=== PATIENT | female | born 1945 | race Caucasian/White ===

== ENCOUNTER 2016-07-07 15:00 | Emergency (ER) | payer OTHER ==
[~2016-07-07] VITALS: Ht 160 cm; Wt 117.9 kg
[~2016-07-07 15:00] MED LIST: BACTRIM DS 8001 TA1 PO; CALCIUM 500 + D1 TA1 PO; DAYPRO600 M1 PO; DETROL LA2 MG PO; DITROPAN XL10 MG PO; K-Dur 20MEQ20 MEQ PO; LASIX20 MG PO; LISINOPRIL/HCTZ1 TA4 PO; MAXEPA1000 MG PO; MOTRIN800 MG PO; MULTIPLE VITAMI1 CAP PO; TESSALON PERLE200 MG PO; TRAMADOL50 MG PO; VICODIN 500 MG-1 TAB PO; ZITHROMAX Z PA250 MG PO
[2016-07-07 15:20] VITALS: BP 127/56
[2016-07-07] MEDS ORDERED: PREDNISONE10 MG PO (15:32)
== END 2016-07-07 17:13 | disposition home or self-care (01) ==
LOC: ED 15:00
DX: M79.671 Pain in right foot (principal); R03.0 Elevated blood-pressure reading, without diagnosis of hypertension; Z88.1 Allergy status to other antibiotic agents; Z90.49 Acquired absence of other specified parts of digestive tract

== ENCOUNTER 2017-01-20 03:58 | Inpatient (IN) | payer OTHER ==
[2017-01-20] VITALS (11 sets, daily range): BP systolic 88–157; BP diastolic 31–88
[~2017-01-20] VITALS: Ht 160 cm; Wt 116.7 kg
--- NOTE | ~2017-01-20 | CON ---
[place], [place] REPORT OF CONSULTATION [facility]TRAN [id number] UNIT #: [id number] ROOM: [facility]- DOCTOR: DORON GAXIOLA MD BIRTHDATE: [birth year] DOS: 01/20/2017 HISTORY OF PRESENT ILLNESS: A 71-year-old patient who presented with chief complaint of nearly passing out and has been admitted by assistance of the family to the hospital and apparently she has had a bloody bowel movement and through the Emergency Room, a panel of blood work has been done. Ionized calcium was normal at 4.8. CT scan of the abdomen and pelvis was done. No acute intrathoracic process identified. Cholecystectomy changes are seen. Mild thickening of the descending colon with adjacent fat stranding suggesting underlying colitis, infectious or inflammation was noticed. Serum ammonia level 15, hemoglobin A1c 6.4, INR 1.0. CBC with differential; white blood cells 32, elevated associated with colitis, H and H of 11 and 36 associated with blood loss was noticed. Comprehensive metabolic panel; BUN and creatinine 37 and 1.4, GFR 41 and compromised renal status, potassium 4. Liver function test normal. C-reactive protein as expected 2.3, elevated. Ketones negative. CT scan of the head has been done, no acute intracranial process. Lactic acid followup still shows elevation. Fecal occult is positive. PAST MEDICAL HISTORY: Associated with hypertension and degenerative joint disease. ALLERGIES: No known medication. SOCIAL HISTORY: Nonsmoker, nonalcohol consumer. FAMILY HISTORY: Noncontributory. PAST SURGICAL HISTORY: Left total knee, right total hip. REVIEW OF SYSTEMS: HEENT: Denies double vision, blurred vision. RESPIRATORY: Denies acute shortness of breath. CARDIOVASCULAR: Denies acute chest pain. DIGESTIVE SYSTEM: Bloody BM. MUSCULOSKELETAL: History of degenerative joint disease. PHYSICAL EXAMINATION: VITAL SIGNS: Stable. Alert and oriented patient, obese. HEENT: Head normocephalic, nontraumatic. Mouth and buccal mucosa benign. NECK: Supple, no thyromegaly, no cervical lymphadenopathy. CHEST: Symmetric anatomy, equal expansion. No wheeze, no rhonchi. HEART: Normal sinus rhythm, no gallop, no murmur. ABDOMEN: Obese, large, soft. No hepato-organomegaly. Bowel sounds present. No pulsatile mass. EXTREMITIES: No cyanosis, no pedal edema. NEUROLOGIC: Alert, oriented to time, place, person. IMPRESSION: Acute gastrointestinal bleed and etiology to be determined, ruling out ischemic colitis. Other adjunctive diagnoses to be ruled out were contributors to gastrointestinal bleed/transit upper gastrointestinal bleeder [place], [place] REPORT OF CONSULTATION NAME: RULA BELTRAN UNIT #: [id number] ROOM: [facility] DOCTOR: DORON GAXIOLA MD BIRTHDATE: [birth year] versus diverticular versus peptic ulcer disease. Other adjunctive diagnoses, hypertension and degenerative joint disease. PLAN AND DISCUSSION: We are considering colonoscopic assessment today. DORON GAXIOLA MD CM:CONSTR:REPORT OF CONSULTATION 1247 01/21/17 0120 interface
--- NOTE | ~2017-01-20 | O ---
[place], [place] OPERATIVE NOTE NAME: RULA BELTRAN UNIT #: [id number] ROOM: [facility] DOCTOR: DORON GAXIOLA MD BIRTHDATE: [birth year] DOS: 01/20/2017 SUBJECTIVE: The patient is a 71-year-old who presented with chief complaint of lower GI bleed, confirmed now to be ischemic colitis on endoscopy and colonoscopy. PROCEDURE: Today's procedure part of investigation is colonoscopy plus biopsy. PREMEDICATION: Versed and Diprivan. SCOPE: Olympus forward-viewing colonoscope 10L video. REPORT: After putting the patient in the left lateral position and after application of lubricant to the scope, the scope was introduced. Thereafter, under direct visualization, I advanced through the length of colon without difficulty. Evidence of ischemic colitis 10 cm from inside the rectum and above to about the transverse colon at the proximal transverse colon was noticed. Degree and intensity is worse at sigmoid colon, descending colon and splenic flexure. Mucosa is very necrotic, blackened and edematous and purplish at the base. Multiple biopsies obtained. Diverticulosis of the descending colon identified. Air was suctioned out. The patient was extubated, tolerated procedure well. PLAN AND DISCUSSION: 1. We are going to organize a CTA of the abdomen, ruling out mesenteric occlusion. 2. We are going to organize heavy IV hydration, as well as antibiotic therapy, organizing metronidazole 500 mg q.8 hours and we are going to organize Invanz 1 gram every day, if not available Invanz then ciprofloxacin 400 mg IV b.i.d. Awaiting CTA of the abdomen results and keeping the patient n.p.o. meanwhile until the data is available incase surgery will become eminent. Thank you very much indeed. Sincerely yours, [place], [place] OPERATIVE NOTE NAME: RULA BELTRAN UNIT #: [id number] ROOM: [facility] DOCTOR: DORON GAXIOLA MD BIRTHDATE: [birth year] DORON GAXIOLA MD CM:OPRECORD:OPERATIVE NOTE 1300 [id number] DORON GAXIOLA MD 01/20/17 1437 interface
[~2017-01-20 03:58] MED LIST changes: +PREDNISONE10 MG PO
[2017-01-20 04:46] LABS: HEMATOCRIT 36.7 % (37.0-47.0); HEMOGLOBIN 11.4 g/dl (12.0-16.0); MEAN CORPUSCULAR HGB CONC 31.1 g/dl (33.0-37.0); MEAN PLATELET VOLUME 10.2 fl (9.6-12.3); NUCLEATED RED BLOOD CELL 0.1 % (0.0-0.0); PLATELET COUNT AUTOMATED 353 10*3/uL (130-400); RED BLOOD COUNT 4.22 10*6/uL (4.10-5.10); RED CELL DISTRI WIDTH 13.7 % (0-14.5); WHITE BLOOD COUNT 32.3 10*3/uL (4.8-10.8)
[2017-01-20 04:52] LABS: BILIRUBIN NEGATIVE (NEGATIVE); BLOOD TRACE-LYSED (NEGATIVE); CLARITY CLOUDY (CLEAR); COLOR YELLOW (YELLOW); GLUCOSE TRACE (NEGATIVE); KETONE NEGATIVE (NEGATIVE); LEUKO ESTERASE 2+ (NEGATIVE); NITRITE NEGATIVE (NEGATIVE); SPECIFIC GRAVITY 1.015 (1.005-1.030)
--- NOTE | 2017-01-20 04:55 | NUR ---
LAB CALLED WITH CRITICAL VALUE OF LACTIC 4.4. NOTIFIED.
[2017-01-20 05:05] LABS: ALBUMIN 3.1 gm/dl (3.1-4.5); ALKALINE PHOSPHATASE 80 U/L (45-117); BUN 37 mg/dl (7-24); CHLORIDE 105 mmol/L (98-107); CREATININE 1.53 mg/dL (0.55-1.02); LIPASE 185 U/L (73-393); POTASSIUM 3.4 mmol/L (3.5-5.1); SGOT/AST 14 IU/L (3-35); SGPT/ALT 17 U/L (12-78); SODIUM 143 mmol/L (136-145); TOTAL PROTEIN 7.3 gm/dL (6.4-8.2)
[2017-01-20 05:05] LABS: BACTERIA 4+; EPITHELIAL CELLS 25-30; WBC 51-100 wbc/hpf (0-5)
[2017-01-20 05:06] LABS: TROPONIN I < 0.015 ng/ml (<0.045)
[2017-01-20 05:08] LABS: TOTAL CELLS COUNTED 100 #CELLS
[2017-01-20 05:09] LABS: BURR CELLS FEW; PLATELET SUFFICIENCY NORMAL (NORMAL)
[2017-01-20] MEDS ORDERED: VESICARE5 MG PO (05:41)
--- NOTE | 2017-01-20 06:05 | NUR ---
A 71, admitted to ICCU, under the services of MART Faust DO with a diagnosis of ACUTE KIDNEY INJURY UTI SEPTIC SHOCK ACUTE COLITIS. Chief complaint is FALL AT HOME. Patient arrived via stretcher from ER. Monitor applied. Initial assessment completed. Vital signs taken and recorded. MART FAUST DO notified of admission to the unit. Orders received. See assessment for past medical history, medications and allergies. Patient and/or family oriented to unit. [facility] visitation policy reviewed. Clothing/patient valuable form completed. WIL PATEL
--- NOTE | 2017-01-20 06:14 | NUR ---
UNABLE TO VERIFY HOME MEDS PATIENT DID NOT KNOW THEM AND DID NOT HAVE A LIST. WILL PASS ON TO CALL [facility] IN AM FOR CURRENT MEDS.
[2017-01-20] MEDS ORDERED: LISINOPRIL-HCT1 EACH PO (06:23)
--- NOTE | 2017-01-20 07:20 | NUR ---
DR LINDSEY NOTIFIED OF INCREASED LA OF 4.8. ORDERS RECIEVED AND CARRIED OUT.
--- NOTE | 2017-01-20 07:32 | NUR ---
PHYSICAL THERAPY [place] received. PAtient medically inappropriate for PT this date. Will check on status tomorrow and intiate as above. Thank you for this referral. Kaylah Saucedo,PT
--- NOTE | 2017-01-20 09:58 | NUR ---
PT HAS BRIGHT BLOODY STOOL. SAMPLE COLLECTED AND SENT. DR LINDSEY NOTIFIED.
--- NOTE | 2017-01-20 12:00 | NUR ---
PT TAKE TO OR FOR COLONOSCOPY.
--- NOTE | 2017-01-20 13:07 | NUR ---
DR GAXIOLA CALLED AND UPDATED ON COLONSOCOPY RESULTS. ORDERS RECIEVED AND CARRIED OUT.
--- NOTE | 2017-01-20 13:15 | NUR ---
RETURNED FROM COLONOSCOPY VIA BED. VITALS STABLE. NO C/O ANY. AWAITING CT OF ABD.
[2017-01-20 13:53] LABS: HEMOGLOBIN 11.8 g/dl (12.0-16.0)
--- NOTE | 2017-01-20 14:09 | NUR ---
PHYSICAL THERAPY PAtient at surgery for COLO this pm. Kaylah Saucedo,PT
--- NOTE | 2017-01-20 14:59 | NUR ---
DR DELACRUZ CONSULTED WITH PT. NEW ORDERS RECIEVED AND CARRIED OUT.
--- NOTE | 2017-01-20 19:35 | NUR ---
PATIENT LYING IN BED, DENIES ANY NAUSEA AT THIS TIME, DECLINES ANY NEEDS AT THIS TIME. PATIENT HAS REFUSED TO GET A BATH, STATED SHE JUST WANTS TO REST TONIGHT. PATIENTS IS WARM TO TOUCH, SHE DENIES CHILLS. DOES SHOW LOW GRADE TEMP OF 99. WILL ADDRESS WITH TYLENOL. WILL CONTINUE TO MONITOR. PATIENT LEFT WITH CALL LIGHT IN REACH.
--- NOTE | 2017-01-20 20:35 | NUR ---
24 HR chart check completed.
--- NOTE | 2017-01-20 20:36 | NUR ---
PATIENT NPO, CHECKED WITH DR. ORDAZ CONCERNING 99 TEMP. WILL MONITOR AND REASSESS. IF IT CONTINUES TO RISE WILL GET NEW ORDER.
[2017-01-21] VITALS: BP 127/69
[2017-01-21 03:59] VITALS: BP 121/64
[2017-01-21 04:40] LABS: HEMATOCRIT 33.1 % (37.0-47.0); HEMOGLOBIN 10.6 g/dl (12.0-16.0); MEAN CORPUSCULAR HGB 26.9 pg (27.0-31.0); MEAN PLATELET VOLUME 9.6 fl (9.6-12.3); PLATELET COUNT AUTOMATED 255 10*3/uL (130-400); RED BLOOD COUNT 3.94 10*6/uL (4.10-5.10); RED CELL DISTRI WIDTH 13.6 % (0-14.5); WHITE BLOOD COUNT 24.6 10*3/uL (4.8-10.8)
[2017-01-21 04:52] LABS: ACT PARTIAL THROMBO TIME 29.1 SECONDS (20.8-31.5); INTERNATIONAL NORM RATIO 1.1 (2.0-3.5)
[2017-01-21 05:11] LABS: CHLORIDE 109 mmol/L (98-107); CHOLESTEROL 111 mg/dL (<200); CREATININE 1.01 mg/dL (0.55-1.02); HDL CHOLESTEROL 42 mg/dl (40-60); LDL CHOLESTEROL 60 mg/dL (9-159); PHOSPHOROUS 1.9 mg/dL (2.5-4.9); POTASSIUM 3.1 mmol/L (3.5-5.1); SODIUM 141 mmol/L (136-145); TRIGLYCERIDES 47 mg/dl (<150); VLDL CHOLESTEROL 9 mg/dL (6-40)
[2017-01-21 05:13] LABS: PLATELET SUFFICIENCY NORMAL (NORMAL); TOTAL CELLS COUNTED 100 #CELLS
[2017-01-21 05:14] LABS: OVALOCYTES FEW
[2017-01-21 05:19] LABS: BUN 25 mg/dl (7-24); THYROID STIM HORMONE (HS) 0.862 uIU/ml (0.358-4.75)
[2017-01-21 06:27] LABS: VITAMIN D, 25-HYDROXY 32.9 ng/mL (30-100)
[2017-01-21 08:00] VITALS: BP 130/70
--- NOTE | 2017-01-21 08:18 | NUR ---
I SPOKE WITH NEPHROLOGY DR ALEJANDRE AND MADE AWARE OF LAB RESULTS TODAY. HE STATED IT WOULD BE OK FOR HER TO HAVE CTA OF ABD TODAY IF DR GAXIOLA STILL WANTS TO ORDER IT.
--- NOTE | 2017-01-21 08:31 | NUR ---
PHYSICAL THERAPY PHYSICAL THERAPY PAtient requests no PT this date. Patient encouraged to particpate. Will attempt at a later date. Thank you for this referral. Kaylah Saucedo,PT
--- NOTE | 2017-01-21 09:00 | NUR ---
Nuclear Plant Operator in to talk to patient. Patient states lives at home with alone. There are few steps in the home. Physician: anirudh harris Pharmacy: [facility] health services: none Patient's level of ADLs: INDEPENDENT Patient has working utilities: all working DME: none Follow-up physician's appointment after d/c: will be made by hospitalist nurse director upon discharge Does patient want to access PORTAL?: no Discharge plan discussed with patient, patient lives at home alone, she is independent in adls and ambulation, states she doesn't drive, but family takes her where ever she needs to go. discussed with her a discharge plan and patient stated that she would be going back home, discussed with her VNA and she stated she was inagreement with this, given choice of companies, she chose [facility], community development planner will make referral to [facility] for when patient is medically stable for discharge. MYRA RAMIREZ
[2017-01-21] MEDS ORDERED: CIPROFLOXA400 MG/40 IV (11:50)
[2017-01-21] MEDS ORDERED: METRONIDAZ500 MG/101 IV (11:50)
--- NOTE | 2017-01-21 11:58 | NUR ---
DR GAXIOLA MADE AWARE OF CTA RESULTS. STATED TO CONTINUE PRESENT TREATMENT OF ABX, IV FLUID HYDRATION AND NPO TILL PT IS ABLE TO BE TRANSFERED.
[2017-01-21 12:00] VITALS: BP 139/77
--- NOTE | 2017-01-21 13:29 | NUR ---
PHYSICAL THERAPY PAtint being transferred to another facilty due to medical issues. Not appropriate for PT this date. Kaylah Saucedo,PT
--- NOTE | 2017-01-21 14:13 | NUR ---
[facility] HERE TO TRANSPORT PT TO [facility]. REPORT GIVEN TO KERWIN AT [facility] TRAUMA ICU. PT'S DAUGHTERS AT BEDSIDE AT TIME OF TRANSPORT.
== END 2017-01-21 14:13 | disposition short-term general hospital (02) | DRG 871 ==
LOC: ED 03:58 → EDHOLD 05:30 → ICCU 05:30
PROVIDERS: Emergency Medicine Emergency Medical Services; Internal Medicine; Internal Medicine Gastroenterology; ADMIT Internal Medicine
PROC: 0DBE8ZX Excision of Large Intestine, Via Natural or Artificial Opening Endoscopic, Diagnostic (ICD-10-PCS; principal; 2017-01-20)
DX: A41.9 Sepsis, unspecified organism (principal); R65.21 Severe sepsis with septic shock; K55.069 Acute infarction of intestine, part and extent unspecified; N17.9 Acute kidney failure, unspecified; D73.5 Infarction of spleen; N28.0 Ischemia and infarction of kidney; N28.1 Cyst of kidney, acquired; R18.8 Other ascites; K55.9 Vascular disorder of intestine, unspecified; N39.0 Urinary tract infection, site not specified; Z68.42 Body mass index [BMI] 45.0-49.9, adult; K76.0 Fatty (change of) liver, not elsewhere classified; R31.9 Hematuria, unspecified; E66.9 Obesity, unspecified; Z96.659 Presence of unspecified artificial knee joint; I10 Essential (primary) hypertension; Z96.649 Presence of unspecified artificial hip joint; D64.9 Anemia, unspecified; E87.6 Hypokalemia; K57.30 Diverticulosis of large intestine without perforation or abscess without bleeding; Z90.710 Acquired absence of both cervix and uterus; Z88.8 Allergy status to other drugs, medicaments and biological substances; Z90.49 Acquired absence of other specified parts of digestive tract; Z79.899 Other long term (current) drug therapy; Z82.49 Family history of ischemic heart disease and other diseases of the circulatory system

== ENCOUNTER → 2017-03-19 | Outpatient (CLI) | payer OTHER ==
[~2017-03-19] MED LIST changes: +CIPROFLOXA400 MG/40 IV; +LISINOPRIL-HCT1 EACH PO; +METRONIDAZ500 MG/101 IV; +VESICARE5 MG PO
[2017-03-21 18:08] LABS: PROTEIN C, ACTIVITY 160 % (.); PROTEIN S ACTIVITY 80 % (.)
== END ==
LOC: LAB 12:28
PROVIDERS: Registered Nurse Flight
DX: D68.59 Other primary thrombophilia (principal)

== ENCOUNTER → 2017-07-29 | Outpatient (CLI) | payer OTHER | END | disposition home or self-care (01) | LOC: MAMMO 15:46 | DX: Z12.31 Encounter for screening mammogram for malignant neoplasm of breast (principal) ==

== ENCOUNTER 2017-09-22 16:11 | Emergency (ER) | payer OTHER ==
[~2017-09-22] VITALS: Ht 160 cm; Wt 102.1 kg
[2017-09-22 16:13] VITALS: BP 145/55
[2017-09-22] MEDS ORDERED: MEDROL DOSEPAK4 MG PO (17:24)
[2017-09-22] MEDS ORDERED: ROBAXIN500 M1 PO (17:24)
[2017-09-22 17:33] LABS: BILIRUBIN NEGATIVE (NEGATIVE); BLOOD NEGATIVE (NEGATIVE); CLARITY CLEAR (CLEAR); COLOR YELLOW (YELLOW); GLUCOSE NEGATIVE (NEGATIVE); KETONE NEGATIVE (NEGATIVE); LEUKO ESTERASE 1+ (NEGATIVE); NITRITE POSITIVE (NEGATIVE); SPECIFIC GRAVITY 1.025 (1.005-1.030); UROBILINOGEN 0.2 E.U./dl (0.2-1.0)
[2017-09-22 17:49] LABS: BACTERIA 4+; RBC 0-2 rbc/hpf (0-2)
[2017-09-22] MEDS ORDERED: SEPTDS PO (18:03)
[2017-09-22] MEDS ORDERED: BAYER ASPIRIN C81 MG PO (18:10)
[2017-09-22] MEDS ORDERED: LISINOPRIL-HCT1 EACH PO (18:11)
[2017-09-22] MEDS ORDERED: OTEZLA30 MG PO (18:11)
[2017-09-22] MEDS ORDERED: VESICARE5 MG PO (18:11)
[2017-09-22] MEDS ORDERED: LIPITOR10 MG PO (18:12)
[2017-09-22] MEDS ORDERED: FISH OIL CONC1000 M1 PO (18:12)
== END 2017-09-22 18:27 | disposition home or self-care (01) ==
LOC: ED 16:11
PROVIDERS: Physician Assistant
DX: N39.0 Urinary tract infection, site not specified (principal); M47.816 Spondylosis without myelopathy or radiculopathy, lumbar region; Z88.0 Allergy status to penicillin; Z88.8 Allergy status to other drugs, medicaments and biological substances; Z90.49 Acquired absence of other specified parts of digestive tract

== ENCOUNTER 2018-06-15 17:50 | Emergency (ER) | payer OTHER ==
[~2018-06-15] VITALS: Ht 160 cm; Wt 102.1 kg
--- NOTE | ~2018-06-15 | EKG ---
[place], [place] ELECTROCARDIOGRAM REPORT NAME: RULA BELTRAN UNIT #: [id number] ROOM: DOCTOR: EPIPHANY DRAFT REPORT BIRTHDATE: [birth year] [facility] Test Date: 2018-06-15 Test Time: 18:30:08 Pat Name: RULA BELTRAN Department: Room: Gender: F Campground Cleaning Attendant: Nolvia Lopez : 1945 Requested By: MEDHAT SALAS PA-C Order Number: [id number] Reading MD: Daryl Jaime Measurements Intervals Ulysses Rate: 70 P: 54 MA: 168 QRS: -13 QRSD: 103 T: 111 QT: 382 QTc: 413 Interpretive Statements Sinus rhythm Abnormal R-wave progression, early transition Nonspecific repol abnormality, diffuse leads Baseline wander in lead(s) V5 Electronically Signed On 06-17-2018 10:42:39 PDT by Daryl Jaime CM:EKGRPT:ELECTROCARDIOGRAM REPORT 1830 1042 MEDHAT SALAS PA-C EPIPHANY DRAFT REPORT MEDHAT SALAS PA-C
[~2018-06-15 17:50] MED LIST changes: +BAYER ASPIRIN C81 MG PO; +FISH OIL CONC1000 M1 PO; +LIPITOR10 MG PO; +MEDROL DOSEPAK4 MG PO; +OTEZLA30 MG PO; +ROBAXIN500 M1 PO; +SEPTDS PO
[2018-06-15 17:51] VITALS: BP 133/55
[2018-06-15 18:23] LABS: BASO # 0.1 10*3/uL (0.0-0.1); BASO % 0.3 % (0.0-1.0); EOS # 0.4 10*3/uL (0.0-0.4); EOS % 2.3 % (1.0-4.0); HEMATOCRIT 37.1 % (37.0-47.0); HEMOGLOBIN 11.6 g/dl (12.0-16.0); LYMPH # 2.8 10*3/uL (1.3-4.4); LYMPH % 16.2 % (27.0-41.0); MEAN CELL VOLUME 89.4 fl (81.0-99.0); MEAN CORPUSCULAR HGB CONC 31.3 g/dl (33.0-37.0); MEAN PLATELET VOLUME 10.1 fl (9.6-12.3); MONO # 1.2 10*3/uL (0.1-1.0); MONO % 6.9 % (3.0-9.0); NEUT % 73.8 % (47.0-73.0); PLATELET COUNT AUTOMATED 374 10*3/uL (130-400); RED BLOOD COUNT 4.15 10*6/uL (4.10-5.10); RED CELL DISTRI WIDTH 14.4 % (0-14.5); WHITE BLOOD COUNT 17.6 10*3/uL (4.8-10.8)
[2018-06-15 18:38] LABS: ACT PARTIAL THROMBO TIME 23.8 SECONDS (20.8-31.5)
[2018-06-15 18:41] LABS: BILIRUBIN NEGATIVE (NEGATIVE); BLOOD TRACE-LYSED (NEGATIVE); CLARITY SL CLOUDY (CLEAR); COLOR YELLOW (YELLOW); GLUCOSE NEGATIVE (NEGATIVE); KETONE NEGATIVE (NEGATIVE); LEUKO ESTERASE 1+ (NEGATIVE); NITRITE POSITIVE (NEGATIVE); PH 5.5 (5.0-9.0); SPECIFIC GRAVITY 1.015 (1.005-1.030); UROBILINOGEN 0.2 E.U./dl (0.2-1.0)
[2018-06-15 18:50] LABS: BACTERIA 4+; MUCOUS TRACE; WBC 31-40 wbc/hpf (0-5)
[2018-06-15 18:52] LABS: ALBUMIN 3.1 gm/dl (3.1-4.5); ALKALINE PHOSPHATASE 99 U/L (45-117); BUN 40 mg/dl (7-24); CHLORIDE 102 mmol/L (98-107); CREATININE 1.16 mg/dL (0.55-1.02); LIPASE 70 U/L (73-393); POTASSIUM 3.6 mmol/L (3.5-5.1); SGOT/AST 20 IU/L (3-35); SGPT/ALT 24 U/L (12-78); SODIUM 140 mmol/L (136-145); TOTAL PROTEIN 8.4 gm/dL (6.4-8.2)
[2018-06-15 18:57] LABS: TROPONIN I < 0.015 ng/ml (<0.045)
[2018-06-15] MEDS ORDERED: MACROBID100 M1 PO (19:35)
== END 2018-06-15 19:46 | disposition home or self-care (01) ==
LOC: ED 17:50
PROVIDERS: Physician Assistant
DX: N39.0 Urinary tract infection, site not specified (principal); R53.1 Weakness; R42 Dizziness and giddiness; R61 Generalized hyperhidrosis; R55 Syncope and collapse; Z88.0 Allergy status to penicillin; Z88.8 Allergy status to other drugs, medicaments and biological substances; Z79.899 Other long term (current) drug therapy; Z87.440 Personal history of urinary (tract) infections; Z79.82 Long term (current) use of aspirin; Z86.73 Personal history of transient ischemic attack (TIA), and cerebral infarction without residual deficits

== ENCOUNTER → 2018-07-30 | Outpatient (CLI) | payer OTHER ==
[~2018-07-30] MED LIST changes: +MACROBID100 M1 PO
== END | disposition home or self-care (01) ==
LOC: MAMMO 07-09 09:00
DX: Z12.31 Encounter for screening mammogram for malignant neoplasm of breast (principal)

== ENCOUNTER → 2018-11-13 | Outpatient (CLI) | payer OTHER | END | disposition home or self-care (01) | LOC: US 11-06 10:44 | DX: I12.9 Hypertensive chronic kidney disease with stage 1 through stage 4 chronic kidney disease, or unspecified chronic kidney disease (principal); N18.3 Chronic kidney disease, stage 3 (moderate) ==

== ENCOUNTER → 2020-03-01 | Outpatient (CLI) | payer OTHER | END | disposition home or self-care (01) | LOC: MAMMO 11:00 | PROVIDERS: ATTEND Nurse Practitioner Family | DX: Z12.31 Encounter for screening mammogram for malignant neoplasm of breast (principal); N64.89 Other specified disorders of breast ==

== ENCOUNTER → 2021-12-26 | Outpatient (CLI) | payer OTHER | END | disposition home or self-care (01) | LOC: RAD 14:44 | PROVIDERS: ATTEND Nurse Practitioner | DX: R06.02 Shortness of breath (principal); I51.7 Cardiomegaly ==

== ENCOUNTER → 2022-10-18 | Outpatient (CLI) | payer OTHER ==
[2022-10-18 14:04] LABS: BASO # 0.1 10*3/uL (0.0-0.1); EOS # 0.4 10*3/uL (0.0-0.4); EOS % 3.2 % (1.0-4.0); HEMATOCRIT 38.6 % (37.0-47.0); LYMPH # 2.5 10*3/uL (1.3-4.4); LYMPH % 21.3 % (27.0-41.0); MEAN CELL VOLUME 92.6 fl (81.0-99.0); MEAN CORPUSCULAR HGB 28.8 pg (27.0-31.0); MEAN CORPUSCULAR HGB CONC 31.1 g/dl (33.0-37.0); MEAN PLATELET VOLUME 9.9 fl (9.6-12.3); MONO # 0.9 10*3/uL (0.1-1.0); MONO % 7.4 % (3.0-9.0); NEUT # 7.8 10*3/uL (2.3-7.9); NEUT % 65.8 % (47.0-73.0); PLATELET COUNT AUTOMATED 369 10*3/uL (130-400); RED BLOOD COUNT 4.17 10*6/uL (4.10-5.10); RED CELL DISTRI WIDTH 14.1 % (0-14.5); WHITE BLOOD COUNT 11.9 10*3/uL (4.8-10.8)
[2022-10-18 14:32] LABS: ALKALINE PHOSPHATASE 97 U/L (46-116); BUN 22 mg/dl (9-23); CHLORIDE 102 mmol/L (98-107); POTASSIUM 3.7 mmol/L (3.4-5.1); SGPT/ALT 15 U/L (10-49)
== END | disposition home or self-care (01) ==
LOC: LAB 13:38
PROVIDERS: ATTEND Nurse Practitioner
DX: I11.0 Hypertensive heart disease with heart failure (principal); E11.9 Type 2 diabetes mellitus without complications; I50.30 Unspecified diastolic (congestive) heart failure

== ENCOUNTER → 2023-07-23 | Outpatient (CLI) | payer MEDICARE | END | disposition home or self-care (01) | LOC: MAMMO 11:00 | PROVIDERS: ATTEND Nurse Practitioner | DX: Z12.31 Encounter for screening mammogram for malignant neoplasm of breast (principal) ==

== ENCOUNTER → 2023-08-20 | Outpatient (CLI) | payer MEDICARE | END | disposition home or self-care (01) | LOC: US 08-14 12:30 | PROVIDERS: ATTEND Nurse Practitioner | DX: N60.02 Solitary cyst of left breast (principal); R92.8 Other abnormal and inconclusive findings on diagnostic imaging of breast; N63.25 Unspecified lump in the left breast, overlapping quadrants ==